=== PATIENT | female | born 1985 | race Caucasian/White ===

== ENCOUNTER 2022-05-19 01:17 | Inpatient (IN) | payer BC ==
[2022-05-19] MEDS ORDERED: Methylergonovine 0.2 MG/1 ML Amp IM PRN (01:26)
[2022-05-19] MEDS ORDERED: Ondansetron 4 MG/2 ML SDV IVPUSH PRN (01:26)
[2022-05-19] MEDS ORDERED: Carboprost Tromethamine 250 MCG/1 ML Amp IM PRN (01:26)
[2022-05-19] MEDS ORDERED: Misoprostol 400 MCG (4 X 100 MCG TAB) RECTAL PRN (01:26)
[2022-05-19] MEDS ORDERED: fentaNYL 100 MCG/2 ML SDV IVPUSH PRN (01:26)
[2022-05-19] MEDS ORDERED: Lidocaine 1% 30 ML SDV INJECT PRN (01:26)
[2022-05-19] MEDS ORDERED: Sodium Chloride 0.9% 10 ML Syringe FLUSH PRN (01:26)
[2022-05-19] MEDS ORDERED: Tranexamic Acid 1,000 MG in Sodium Chloride 0.9% 100 ML IV PRN (01:26)
[2022-05-19] MEDS ORDERED: Butorphanol 2 MG/ML SDV IVPUSH PRN ×2 (01:26)
[2022-05-19] MEDS ORDERED: Misoprostol 25 MCG (1/4 of 100 MCG) Tab VAG PRN (01:28)
[2022-05-19] MEDS ORDERED: Lactated Ringers 1,000 ML IV SCH (01:30)
[2022-05-19] MEDS ORDERED: Oxytocin/Normal Saline 30 UNIT/500 ML BAG IV SCH (01:30)
[2022-05-19] MEDS ORDERED: Misoprostol 50 MCG (1/2 of 100 MCG) Tab VAG ONE (07:00)
[2022-05-19] MEDS: Lactated Ringers 1,000 ML IV ONE ×2 (15:00→16:01)
[2022-05-19] MEDS ORDERED: Dexmedetomidine 200 MCG/2 ML SDV ONE (15:14)
[2022-05-19] MEDS ORDERED: EPINEPHrine 1 MG/ML SDV ONE ×2 (15:14→19:24)
[2022-05-19] MEDS ORDERED: Sodium Bicarbonate 4.2% 2.5 MEQ/5 ML SDV ONE ×2 (15:15→19:24)
[2022-05-19] MEDS ORDERED: Oxytocin 10 Units/1 ML SDV IM PRN (18:07)
[2022-05-19] MEDS ORDERED: Docusate Sodium 100 MG Cap PO PRN (18:07)
[2022-05-19] MEDS ORDERED: Simethicone 80 MG Tab.Chew PO PRN (18:07)
[2022-05-19] MEDS ORDERED: Benzocaine/Menthol 20%-0.5% Spray 78 GM Cannister TOP PRN (18:07)
[2022-05-19] MEDS ORDERED: Acetaminophen 325 MG Tab PO PRN (18:07)
[2022-05-19] MEDS ORDERED: Sodium Chloride 0.9% 20 ML SDV ONE (19:24)
[2022-05-19] MEDS ORDERED: Morphine PF 10 MG/10 ML SDV IT ONE (19:24)
[2022-05-19] MEDS ORDERED: Dexmedetomidine 200 MCG/2 ML SDV IT ONE (19:24)
[2022-05-19 20:02] VITALS: BP 105/58; PULSE 57
[2022-05-19] MEDS: Acetaminophen 325 MG Tab PO PRN (21:01)
[2022-05-19] MEDS: Ibuprofen 800 MG Tab PO PRN (21:01)
[2022-05-20] MEDS ORDERED: Mineral Oil/Petrolatum/Phenylephrine/Shark Liver Oil Oint 57 GM Tube RECTAL PRN (08:54)
[2022-05-20] MEDS ORDERED: Prenatal Multivitamin with Calcium/Folic Acid/Iron Tab PO SCH (09:00)
[2022-05-20] MEDS ORDERED: Witch Hazel Medicated Pads 100/Jar TOP PRN (09:43)
[2022-05-20] MEDS: Ibuprofen 800 MG Tab PO PRN (09:56)
[2022-05-20] MEDS: Acetaminophen 325 MG Tab PO PRN (09:57)
== END 2022-05-20 19:25 | disposition home or self-care (01) | DRG 560 ==
LOC: DL.OB 07:55 → OBSVTOIN 16:19
PROVIDERS: ADMIT Family Medicine; ATTEND Family Medicine
PROC: 10E0XZZ Delivery of Products of Conception, External Approach (ICD-10-PCS; principal; 2022-05-19)
PROC: 10907ZC Drainage of Amniotic Fluid, Therapeutic from Products of Conception, Via Natural or Artificial Opening (ICD-10-PCS; 2022-05-19)
PROC: 0KQM0ZZ Repair Perineum Muscle, Open Approach (ICD-10-PCS; 2022-05-19)
PROC: 3E0P7VZ Introduction of Hormone into Female Reproductive, Via Natural or Artificial Opening (ICD-10-PCS; 2022-05-19)
DX: O99.02 Anemia complicating childbirth (principal); D64.9 Anemia, unspecified; O99.814 Abnormal glucose complicating childbirth; O70.1 Second degree perineal laceration during delivery; O69.81X0 Labor and delivery complicated by cord around neck, without compression, not applicable or unspecified; Z79.82 Long term (current) use of aspirin; Z37.0 Single live birth; Z79.899 Other long term (current) drug therapy; Z3A.39 39 weeks gestation of pregnancy
CPT/HCPCS: 01967; 36415; 85027; 86592; A9270-GY; J0171; J2270; J2405; J2590; J3490; J7120